=== PATIENT | female | born 1965 | race Caucasian/White ===

== ENCOUNTER 2022-10-09 11:51 | Observation (INO) | payer SELFPAY ==
[~2022-10-09] VITALS: Ht 154 cm; Wt 117.9 kg
[2022-10-09 12:38] LABS: BILIRUBIN,URINE NEGATIVE (NEGATIVE); CLARITY,URINE CLEAR; COLOR,URINE YELLOW; GLUCOSE, URINE (UA) 3+ (NEGATIVE); KETONES,URINE NEGATIVE (NEGATIVE); LEUKOCYTE ESTERASE ,URINE NEGATIVE (NEGATIVE); NITRITE,URINE NEGATIVE (NEGATIVE); PH,URINE 5.5 (5-9); PROTEIN,URINE 1+ (NEGATIVE)
[2022-10-09 12:54] LABS: BACTERIA,URINE NEGATIVE /HPF
[2022-10-09] MEDS ORDERED: RX-OSELTAMIVIR 75 MG (TAMIFLU) BOX OF 10 PO STA (13:08)
[2022-10-09 13:13] LABS: BASOPHILS % (AUTO) 0 % (0-10); EOSINOPHILS # (AUTO) 0.1 10^3/uL (0.0-0.3); EOSINOPHILS % (AUTO) 1 % (0-10); HEMATOCRIT 39 % (35-52); HEMOGLOBIN 12.7 g/dL (11.5-16.0); LYMPHOCYTES # (AUTO) 1.4 10^3/uL (1.0-4.0); LYMPHOCYTES % (AUTO) 16 % (12-44); MEAN CORPUSCULAR HEMOGLOBIN 29 pg (25-34); MEAN CORPUSCULAR HGB CONC 32 g/dL (32-36); MEAN CORPUSCULAR VOLUME 89 fL (80-99); MEAN PLATELET VOLUME 10.6 fL (9.0-12.2); MONOCYTES # (AUTO) 0.6 10^3/uL (0.0-1.0); MONOCYTES % (AUTO) 7 % (0-12); NEUTROPHILS # (AUTO) 6.6 10^3/uL (1.8-7.8); NEUTROPHILS % (AUTO) 76 % (42-75); PLATELET COUNT 240 10^3/uL (130-400); WHITE BLOOD COUNT 8.7 10^3/uL (4.3-11.0)
[2022-10-09] MEDS ORDERED: ONDANSETRON 4 MG/2 ML (SDV) Z0FRAN IVP ONE (13:15)
[2022-10-09] MEDS ORDERED: LACTATED RINGERS 1,000 ML IV ONE ×2 (13:15→17:00)
[2022-10-09 13:18] LABS: POTASSIUM 3.5 MMOL/L (3.6-5.0)
[2022-10-09 13:19] LABS: CALCIUM 9.3 MG/DL (8.5-10.1)
[2022-10-09 13:20] LABS: TOTAL PROTEIN 8.2 GM/DL (6.4-8.2)
[2022-10-09 13:22] LABS: BILIRUBIN,TOTAL 0.5 MG/DL (0.1-1.0)
[2022-10-09 13:24] LABS: CREATININE SERUM 1.59 MG/DL (0.60-1.30)
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
[2022-10-09 13:27] LABS: MAGNESIUM 2.3 MG/DL (1.6-2.4)
--- NOTE | 2022-10-09 13:49 | Diagnostic Imaging Report ---
EXAMINATION: Right tibia and fibula radiographs, 2 views. COMPARISON: None. HISTORY: 57-year-old female, right tibia and fibula pain. FINDINGS: There is prominent soft tissue swelling anteriorly at the level of the proximal to mid diaphysis of the tibia and fibula. There is no identified radiopaque foreign body. There is no identified acute fracture. There is no cortical or aggressive bone destruction. IMPRESSION: 1. Nonspecific prominent focal soft tissue swelling anteriorly at the level of the proximal to mid diaphysis of the tibia and fibula. 2. No identified acute osseous abnormality. Dictated by: Dictated on workstation # [id number]
[2022-10-09] MEDS ORDERED: RT-ALBUTEROL HFA 8.5 GM INHALER IH STA (14:03)
--- NOTE | 2022-10-09 14:09 | Diagnostic Imaging Report ---
EXAMINATION: Chest radiograph, portable AP view. DATE: 10/09/2022 2:04 PM INDICATION: 57-year-old female, hypoxia. COMPARISON: None. FINDINGS: Heart size and mediastinal contours are unremarkable. There is no identified pneumothorax. There is no large pleural effusion. IMPRESSION: 1. No identified acute cardiopulmonary abnormality. Dictated by: Dictated on workstation # [id number]
[2022-10-09] MEDS ORDERED: ONDA4TAB11 SL (14:58)
[2022-10-09] MEDS ORDERED: RX-ONDANSETRON 4 MG ODT (ZOFRAN) PPK #4 SL STA (14:59)
[2022-10-09] MEDS ORDERED: PROMETHAZINE INJ 25 MG/ML (PHENERGAN) AMP IVP ONE (17:00)
[2022-10-09] MEDS ORDERED: ENOXAPARIN 60 MG/0.6 ML (LOVENOX) SYR SC ONE (17:30)
[2022-10-09] MEDS ORDERED: ONDANSETRON 4 MG (ZOFRAN) ORAL DISSOLVE TAB PO PRN (18:30)
[2022-10-09] MEDS ORDERED: ANTACID SUSP 30 ML UDC (MYLANTA) PO PRN (18:30)
[2022-10-09] MEDS ORDERED: diphenhydrAMINE 25 MG TAB (BENADRYL) PO PRN (18:30)
[2022-10-09] MEDS ORDERED: NS IV 500 ML 500 ML IV PRN (18:30)
[2022-10-09] MEDS ORDERED: MELATONIN 3 MG TABLET PO PRN (18:30)
[2022-10-09] MEDS ORDERED: polyethylene glycoL POWDER 17 GM (MIRALAX) PACK PO PRN (18:30)
[2022-10-09] MEDS ORDERED: CALCIUM CARBONATE 500 MG (TUMS) TAB.CHEW PO PRN (18:30)
[2022-10-09] MEDS ORDERED: BISACODYL 10 MG SUPP (DULCOLAX) PR PRN (18:30)
[2022-10-09] MEDS ORDERED: LACTULOSE SYRUP 10GM/15ML (ENULOSE) 30ML UDC PO PRN (18:30)
[2022-10-09] MEDS ORDERED: ONDANSETRON 4 MG/2 ML (SDV) Z0FRAN IV PRN (18:30)
[2022-10-09] MEDS ORDERED: diphenhydrAMINE 50 MG/ML INJ (BENADRYL) IVP PRN (18:30)
[2022-10-09] MEDS ORDERED: MILK OF MAGNESIA 400 MG/5 ML 30 ML UDC PO PRN (18:30)
[2022-10-09] MEDS ORDERED: ACETAMINOPHEN 325 MG TABLET PO PRN (18:30)
[2022-10-09] MEDS: NS IV 1000 ML 1,000 ML IV SCH (18:36)
[2022-10-09 18:53] VITALS: BP 150/79
[2022-10-09 19:29] VITALS: BP 146/90
[2022-10-09] MEDS ORDERED: RT-ALBUTEROL SULF 2.5 MG/3 ML PRE-MIX VIAL INH PRN (19:45)
[2022-10-09 20:00] VITALS: BP 153/78
[2022-10-09] MEDS: DOCUSATE SODIUM 100 MG (COLACE) CAP PO SCH (20:08)
[2022-10-09] MEDS: SENNOSIDES 8.6 MG (SENOKOT) TAB PO SCH (20:08)
[2022-10-09] MEDS ORDERED: OSELTAMIVIR 30 MG (TAMIFLU) CAPSULE PO SCH (21:00)
[2022-10-09] MEDS ORDERED: ONDANSETRON 4 MG/2 ML (SDV) Z0FRAN ONE (21:08)
[2022-10-09 23:31] VITALS: BP 159/81
[2022-10-10 03:40] VITALS: BP 145/96
[2022-10-10] MEDS ORDERED: PROMETHAZINE INJ 25 MG/ML (PHENERGAN) AMP ONE (03:58)
[2022-10-10] MEDS ORDERED: PROMETHAZINE INJ 25 MG/ML (PHENERGAN) AMP IVP PRN (04:00)
[2022-10-10] MEDS: NS IV 1000 ML 1,000 ML IV SCH ×2 (04:04→12:39)
[2022-10-10] MEDS ORDERED: MAGNESIUM 1 GM/100 ML IVPB 100 ML IV SCH (06:00)
[2022-10-10] MEDS ORDERED: POTASSIUM CL 10MEQ/50ML IVPB 50 ML IV SCH (06:00)
[2022-10-10] MEDS ORDERED: KCL 20 MEQ TAB (K-DUR) PO SCH (06:00)
[2022-10-10 06:32] LABS: CALCIUM 8.5 MG/DL (8.5-10.1); CREATININE SERUM 1.16 MG/DL (0.60-1.30); MAGNESIUM 2.2 MG/DL (1.6-2.4); POTASSIUM 3.8 MMOL/L (3.6-5.0)
[2022-10-10 07:57] VITALS: BP 183/82
[2022-10-10] MEDS: SENNOSIDES 8.6 MG (SENOKOT) TAB PO SCH (08:38)
[2022-10-10] MEDS: DOCUSATE SODIUM 100 MG (COLACE) CAP PO SCH (08:38)
[2022-10-10] MEDS ORDERED: OSELTAMIVIR 75 MG (TAMIFLU) CAPSULE PO SCH ×3 (09:00)
[2022-10-10] MEDS ORDERED: HOLD METFORMIN - RECEIVED CONTRAST 20 ML VIAL IV SCH (09:15)
[2022-10-10] MEDS ORDERED: IOHEXOL 350 MG/ML 100 ML (OMNIPAQUE 350) VIAL IV ONE (09:15)
[2022-10-10] MEDS ORDERED: NS 100 ML (IVPB) BAG IV ONE (09:15)
[2022-10-10] MEDS ORDERED: FLU QUADRIvalent (6 months+) 60 mcg/0.5 ml 2022-23 (Fluzone) IM ONE (10:30)
[2022-10-10] MEDS ORDERED: inSUlin ASPART (NovoLOG) 1 UNIT/0.01 ML (CHARGE PER UNIT) SC SCH (11:00)
[2022-10-10 11:35] VITALS: BP 189/89
--- NOTE | 2022-10-10 12:27 | Diagnostic Imaging Report ---
Clinical Indication: Patient with elevated d-dimer and hypoxia. PE suspected Exam: CT angiogram of the chest performed with 84 cc Omnipaque 350 IV contrast. Coronal and oblique MIP images of the vasculature were created to better evaluate anatomy. Auto Exposure Controls were utilized during the CT exam to meet ALARA standards for radiation dose reduction. Comparison: Chest x-ray dated 10/09/2022. Findings: There is artifact limiting evaluation of pulmonary arteries and mediastinal structures. There is no gross evidence of pulmonary embolism. There is no thoracic aortic dissection or aneurysm. There is mild volume loss involving both lung bases and patchy atelectasis. There is no definite lung infiltrate. Are clear. There is no pleural effusion pneumothorax. There is no mediastinal or axillary lymphadenopathy. Mediastinal structures and heart shows no significant abnormality. There are multiple stones within the gallbladder dependently located. There is no CT evidence of cholecystitis. There are hypertrophic spurs involving the thoracic spine. Impression: 1: There is no evidence of pulmonary embolism. There is no thoracic aortic aneurysm or dissection. 2: There is mild atelectasis involving both lungs. 3: Cholelithiasis with no CT evidence of cholecystitis. Dictated by: Dictated on workstation # [id number]
[2022-10-10] MEDS ORDERED: METF-399 PO (13:20)
[2022-10-10] MEDS ORDERED: SITA100T12 PO (13:20)
[2022-10-10] MEDS ORDERED: GLIP10TA13 PO (13:20)
[2022-10-10] MEDS ORDERED: TRZ50T PO (13:20)
[2022-10-10] MEDS ORDERED: ATOR40TA70 PO (13:20)
[2022-10-10] MEDS ORDERED: AMLO-251 PO (13:20)
[2022-10-10] MEDS ORDERED: DULO60CA7 PO (13:20)
[2022-10-10] MEDS ORDERED: EMPA25TA PO (13:20)
[2022-10-10] MEDS ORDERED: HYDR25TA4 PO (13:20)
[2022-10-10] MEDS ORDERED: INSU100I29 SQ (13:20)
[2022-10-10] MEDS ORDERED: GABA300C PO (13:20)
[2022-10-10] MEDS ORDERED: LORA10TA7 PO (13:20)
[2022-10-10] MEDS ORDERED: LISI20TA26 PO (13:20)
[2022-10-10] MEDS ORDERED: hydrALAZINE (APESOLINE) 20 MG/ML VIAL IV NR (13:30)
[2022-10-10] MEDS ORDERED: lisINopril 40 MG (PRINIVIL) TABLET PO NR (13:30)
[2022-10-10] MEDS ORDERED: amLODIPine 10 MG (NORVASC) TAB PO NR (13:30)
[2022-10-10 15:34] VITALS: BP 149/67
[2022-10-10 15:57] VITALS: BP 149/67
--- NOTE | 2022-10-10 19:26 | Short Stay Summary-Hospitalist ---
History of Present Illness HPI/Chief Complaint Pat Lane is a 57 year old female with PMH HTN, T2DM, morbid obesity, who presented with shortness of breath. She also reports weakness. She has had body aches. She reports abdominal pain and diarrhea. She denies fevers. She denies chest pain. She recently moved to the area from [place] after from her . She is a poorly controlled insulin dependent diabetic. She is staying with her daughter. She does not have a doctor here yet. Source: patient Exam Limitations: no limitations Date Seen 10/10/22 Time Seen by a Provider: 12:50 Attending Physician No,Local Physician PCP Admitting Physician: Ximena Ortega MD Attending Physician: Ximena Ortega MD Referring Physician Date of Admission Oct 09, 2022 at 17:45 Home Medications & Allergies Home Medications Reviewed patient Home Medication Reconciliation performed by pharmacy medication reconciliations senior controls technician and/or nursing. Patients Allergies have been reviewed. Allergies Allergies Coded Allergies aspirin (Verified Allergy, Unknown, nausea and dizziness , 10/09/22) codeine (Verified Allergy, Unknown, nausea and dizziness , 10/09/22) Past Huzpgqk-Gbyemg-Gwwevt Hx Patient Social History Tobacco Use?: No Use of E-Cig and/or Vaping dev: No Substance use?: Yes Substance type: Marijuana Alcohol Use?: No Pt feels they are or have been: No Immunizations Up To Date First/Initial COVID19 Vaccinat: RECEIVED, UNK WHEN Second COVID19 Vaccination Vishal: RECEIVED, UNK WHEN Current Status status: No status: No Advance Directives: No Communicates: Verbally Primary Language: Italian Preferred Spoken Language: Italian Is interpretation needed?: No Implanted or Applied Medical D: None Past Medical History Surgeries: Section Hypertension Diabetes, Insulin dep (Type II) Family Medical History No Pertinent Family Hx Review of Systems Constitutional: malaise, weakness EENTM: no symptoms reported Respiratory: short of breath Cardiovascular: no symptoms reported Gastrointestinal: abdominal pain, diarrhea Physical Exam Physical Exam Vital Signs Vital Signs - First Documented 10/09/22 10/09/22 10/09/22 12:00 13:20 19:29 Temp 35.9 Pulse 76 Resp 18 B/P (MAP) 146/90 (108) Pulse Ox 96 O2 Delivery Room Air O2 Flow Rate 1.00 FiO2 24 Capillary Refill : Height, Weight, BMI Height: '" Weight: lbs. oz. kg; 49.71 BMI Method: General Appearance: No Apparent Distress, Obese HEENT: PERRL/EOMI, Pharynx Normal Neck: Normal Inspection, Supple Respiratory: Lungs Clear, Normal Breath Sounds, No Respiratory Distress Cardiovascular: Regular Rate, Rhythm, No Murmur Gastrointestinal: Normal Bowel Sounds, Non Tender, Soft Extremity: Non Tender, No Pedal Edema Neurologic/Psychiatric: Alert, Oriented x3, No Motor/Sensory Deficits, Normal Mood/Affect Skin: Normal Color, Warm/Dry Results Results/Procedures Labs Laboratory Tests 10/09/22 12:09 10/10/22 05:55 Patient resulted labs reviewed. Imaging: Reviewed Imaging Report Short Stay Diagnosis Discharge Diagnosis-Short Stay Admission Diagnosis Influenza A Final Discharge Diagnosis Influenza A Conclusion Plan Influenza A No supplemental oxygen requirement CTA with no evidence of PE Continue Tamiflu HTN T2DM Morbid obesity Continue home meds Establish with a PCP in the area Diagnosis/Problems Diagnosis/Problems (1) Influenza A Status: Acute (2) HTN (hypertension) Status: Acute Qualifiers: Qualified Codes: I10 - Essential (primary) hypertension (3) T2DM (type 2 diabetes mellitus) Status: Acute Qualifiers: Qualified Codes: E11.65 - Type 2 diabetes mellitus with hyperglycemia; Z79.4 - intermodal truck driver (current) use of insulin (4) Morbid obesity Status: Acute Copy Copies To 1: [facility]/XIMENA BRISENO MD Oct 10, 2022 19:26
== END 2022-10-10 16:18 | disposition home or self-care (01) ==
LOC: ER 11:54 → 4TH 17:45
PROVIDERS: ADMIT Internal Medicine; ATTEND Internal Medicine
DX: J10.1 Influenza due to other identified influenza virus with other respiratory manifestations (principal); I10 Essential (primary) hypertension; E11.9 Type 2 diabetes mellitus without complications; E66.01 Morbid (severe) obesity due to excess calories; Z79.4 Long term (current) use of insulin; Z68.42 Body mass index [BMI] 45.0-49.9, adult
CPT/HCPCS: 36410; 71045; 71275; 73590; 76937; 80048; 80053; 81000; 82947 ×2; 83036; 83735 ×2; 83880; 84484; 85025; 85379; 87636; 99283; C1751; 36415; 96372; 96375; 96376